=== PATIENT | male | born 2000 | race Caucasian/White ===

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

== ENCOUNTER → 2021-08-05 09:46 | Outpatient (BNVA) | payer OTHER, SELFPAY | PROVIDERS: PCP Internal Medicine; Visit Provider Nurse Practitioner Psychiatric/Mental Health | DX: F31.81 Bipolar II disorder (principal); Z03.89 Encounter for observation for other suspected diseases and conditions ruled out; Z79.899 Other long term (current) drug therapy; F50.81 Binge eating disorder; F90.2 Attention-deficit hyperactivity disorder, combined type; Z78.9 Other specified health status | CPT/HCPCS: 80053; 80061; 82306; 83036; 84443 ==

== ENCOUNTER → 2021-12-30 13:58 | Outpatient (BNVA) | payer OTHER, SELFPAY | PROVIDERS: PCP Internal Medicine; Visit Provider Nurse Practitioner Psychiatric/Mental Health | DX: F50.81 Binge eating disorder (principal); F90.2 Attention-deficit hyperactivity disorder, combined type; Z79.899 Other long term (current) drug therapy | CPT/HCPCS: 80053; 82306 ==

== ENCOUNTER 2023-02-12 17:06 | Emergency (ER) | payer OTHER, MEDICAID, SELFPAY ==
[2023-02-12 17:14] VITALS: BP 146/88; PULSE 129; RESP 18; TEMP 38.5; O2SAT 100; BMI 47.5
[2023-02-12 17:43] VITALS: BP 146/88; PULSE 129; RESP 18; O2SAT 100
--- NOTE | 2023-02-12 18:00 | ED.C_ITS ---
HPI - Psych General: Chief Complaint: Psychiatric Symptoms Stated Complaint: MHE,SI,off meds Time Seen by Provider: 02/12/23 17:41 History of Present Illness: Patient presents to the ER with family members at bedside. Patient states she does have a history of recent hallucinations and she has been off her medicine for a long long time. Family says she was recently found walking alongside the road and wandering through peoples yards and was seen at another facility and discharged. Patient would like to get back on her medications. Patient is not suicidal or homicidal at this time. Patient says the Abilify worked the best for her but does not know the dosage. Review of Systems General: Reports: 10 or more systems reviewed and unremarkable except in HPI and below PFSH ED PFSH: Medical History [id number] transgender person Psychiatric care Binge eating disorder Since age of 14 yr old Attention deficit hyperactivity disorder (ADHD), combined type, moderate diagnosed as a child Bipolar II disorder Depressive episodes Family History Grandfather Cancer Lung disease Grandmother Dementia Lung disease Father Diabetes Social History Smoking and tobacco/nicotine status: never used tobacco/nicotine Second hand smoke exposure: No Alcohol intake: former Substance/Drug Use: never Adopted: No Physical Exam Const: COMMON NORMALS: no acute distress, average body habitus, patient oriented x3, no limitations, healthy appearing, alert and well nourished HENMT: COMMON NORMALS: normocephalic, atraumatic, hearing grossly normal bilaterally, external ears normal, Normal external nose present, moist oral mucous membranes and oropharynx normal HEAD & SCALP: normocephalic and atraumatic NOSE: Normal external nose present EXTERNAL EAR: Yes external ears normal Neck/C-Spine: COMMON NORMALS: no JVD Chest: COMMONS NORMALS: normal inspection of the chest and normal palpation of entire chest wall Resp: COMMON NORMALS: normal respiratory effort, No retractions, No use of accessory muscles and clear to auscultation bilaterally AUSCULTATION: clear to auscultation bilaterally Cardio: COMMON NORMALS: no JVD, regular rate, regular rhythm, S1 normal heart sound present, S2 normal heart sound present, No gallops present (Cardio), No clicks present (Cardio), No murmurs present (Cardio) and No rub (Cardio) RATE: regular rate RHYTHM: regular rhythm HEART SOUNDS: S1 normal heart sound present and S2 normal heart sound present GI: COMMON NORMALS: Normal to inspection, nondistended, normoactive bowel sounds present, Soft to palpation, non-tender, No hepatosplenomegaly present and no masses PALPATION: Yes Soft to palpation and Yes No hepatosplenomegaly present Neuro: COMMON NORMALS: patient oriented x3 SENSORIUM/ORIENTATION: Yes alert Course Vital Signs: Vital signs: Vital Signs Temperature 101.3 F 02/12/23 17:14 Pulse Rate 129 02/12/23 17:43 Respiratory Rate 18 02/12/23 17:43 Blood Pressure 146/88 02/12/23 17:43 Pulse Oximetry 100 02/12/23 17:43 Oxygen Delivery Me thod Room Air 02/12/23 17:43 [facility] - Psych Medical Decision Making Patient has bipolar and has been off her medicine for some time. Patient is having recent hallucinations. Patient is not suicidal or homicidal. Patient was get back on her medication. She does not know the dose. We will restart her on Abilify 10 mg and refer her to psychiatry. Differential Diagnosis Likely bipolar disorder; Unlikely acute psychosis, chronic schizophrenia, suicidal ideation, depression, drug-induced psychotic disorder or acute anxiety Medical Records I reviewed the patient's medical records. Lab Data I reviewed the patient's lab results. No radiology studies performed this visit Discharge Plan Discharge Patient Disposition: Home Clinical Impression: Bipolar II disorder Condition: Stable Prescriptions: No Action spironolactone 25 mg tablet 50 mg PO DAILY estradiol 2 mg tablet 2 mg PO BID Rx Instructions: Take one tablet every morning and one tablet at bedtime hydroxyzine pamoate [Vistaril] 25 mg capsule 25 mg PO BID PRN (Reason: anxiety) Qty: 30 3RF Rx Instructions: May take one capsule twice per day as needed for anxiety Latuda 20 mg tablet 20 mg PO BEDTIME Qty: 30 3RF Rx Instructions: Take one tablet with 40 mg tablet at bedtime with 350 calorie snack, total dose of 60 mg Latuda 40 mg tablet 40 mg PO BEDTIME Qty: 30 3RF Rx Instructions: Take one tablet at bedtime with 350 calories snack progesterone micronized 100 mg capsule 200 mg PO BEDTIME Discharge Orders: Discharge ED (Routine); Ordered 02/12/23 Ordered By: Jm Her Referrals: Jamey Schofield MD [Primary Care Provider] - 1 week Patient Instructions: Bipolar Disorder Activity Restrictions/Additional Instructions: Please restart and take your medicine as prescribed. This will be Abilify 10 mg 1 pill daily. You have been referred to case management they will be giving you a call and setting up an appointment with a psychiatrist and/or counselor. If you have not heard from them within a couple business days please feel free to call back. If you have develop any suicidal or homicidal ideation please return to the ER for further evaluation and treatment. Coding Level of Care Code ED Hematology Oncology Consultant for Brennan Grijalva
[2023-02-12] MEDS: ARIPiprazole 10 mg Tablet PO (18:49)
[2023-02-12 18:50] VITALS: BP 135/89; PULSE 91; O2SAT 95
== END 2023-02-12 18:51 | disposition home or self-care (01) ==
PROVIDERS: Emergency Provider Emergency Medicine; PCP Internal Medicine
DX: F31.81 Bipolar II disorder (principal)
CPT/HCPCS: 99283

== ENCOUNTER 2023-02-14 10:01 | Emergency (ER) | payer OTHER, MEDICAID, SELFPAY ==
[2023-02-14] VITALS (8 sets, daily range): BP systolic 134–163; BP diastolic 89–110; PULSE 78–120; RESP 20; O2SAT 96–100
--- NOTE | 2023-02-14 10:30 | PC.PHAR ---
GUARDIAN STATES PT NOT TAKING ESTRADIOL 2 MG LAST FILLED 90DS. NO OTHER MEDS EXCEPT ABILIFY 10 MG 02/14/23
--- NOTE | 2023-02-14 10:39 | ED.C_ITS ---
Documented by User: Pretty Chance MD 02/15/23 06:13 HPI - Psych 2 General: Chief Complaint: Psychiatric Symptoms Stated Complaint: MHE Time Seen by Provider: 02/14/23 10:07 Source: patient and family Mode of arrival: ambulatory Limitations: no limitations History of Present Illness: 22-year-old male who identifies as a fem katharine who has a history of bipolar mother states that she did not take her meds for a year mother states that she was in [place] was at a hospital in was talking to people not there and left AMA police then picked her up with mother and went and got her and brought her down here she states that since she has been here she has been extremely paranoid states that she just caught her playing with a title examiner and then this morning was throwing pancakes in the trash and states that she has had hallucinations patient here does admit that she has been hearing things but is very avoidant with me and will not give me much history. Associated symptoms: Reports auditory hallucinations and delusions; Deny depression Review of Systems 2 Const: Denies: fever(s), chills, body aches or change in appetite Eyes: Denies: blurry vision or eye discomfort ENMT: Denies: throat pain or dental pain Card: Denies: chest pain Resp: Denies: dyspnea GI: Denies: abdominal pain, nausea, vomiting or diarrhea Musc: Denies: neck pain or back pain Skin/Breast: Denies: rash Neuro: Denies: headache(s) Psych: Reports: paranoia and auditory hallucinations; Denies: depression PFSH ED 2 PFSH: Medical History [id number] transgender person Psychiatric care Binge eating disorder Since age of 14 yr old Attention deficit hyperactivity disorder (ADHD), combined type, moderate diagnosed as a child Bipolar II disorder Depressive episodes Family History Grandfather Cancer Lung disease Grandmother Dementia Lung disease Father Diabetes Social History Smoking and tobacco/nicotine status: never used tobacco/nicotine Second hand smoke exposure: No Alcohol intake: former Substance/Drug Use: never Adopted: No Physical Exam 2 Const: COMMON NORMALS: no acute distress, patient oriented x3 and healthy appearing HENMT: COMMON NORMALS: normocephalic and atraumatic HEAD & SCALP: n ormocephalic and atraumatic Eye: COMMON NORMALS: Equal, round and reactive pupils present and EOMs intact bilaterally PUPIL: Yes Equal, round and reactive pupils present Neck/C-Spine: COMMON NORMALS: full ROM and supple Chest: COMMONS NORMALS: normal inspection of the chest and normal palpation of entire chest wall Resp: COMMON NORMALS: normal respiratory effort Cardio: COMMON NORMALS: regular rate RATE: regular rate Extremity: COMMON NORMALS: normal to inspection and full ROM Neuro: COMMON NORMALS: patient oriented x3, moves all extremities and no focal motor deficits Psych: COMMON NORMALS: mental status grossly normal and cooperative SPEECH: Yes minimal MOOD & AFFECT: Yes depressed mood THOUGHT CONTENT: Yes delusions Skin: COMMON NORMALS: no rashes or lesions noted and no wounds GENERAL SKIN EXAM: no rashes or lesions noted Course 2 Vital Signs: Vital signs: Vital Signs Pulse Rate 120 02/14/23 10:06 Respiratory Rate 20 02/14/23 10:06 Blood Pressure 163/110 02/14/23 10:06 Pulse Oximetry 98 02/14/23 15:12 Oxygen Delivery Me thod Room Air 02/14/23 10:57 MDM - Psych Medical Records I reviewed the patient's medical records. Lab Data I reviewed the patient's lab results. 02/14/23 10:32 02/14/23 10:32 Laboratory Results WBC 9.10 10^3/uL (3.29-11.43) 02/14/23 10:32 RBC 4.67 10^6/uL (3.85-5.65) 02/14/23 10:32 Hgb 12.90 g/dL (11.27-16.99) 02/14/23 10:32 Hct 40.8 % (37-53) 02/14/23 10:32 MCV 87.4 fl (82-101) 02/14/23 10:32 MCH 27.6 pg (27-33) 02/14/23 10:32 MCHC 31.6 g/dL (30-55) 02/14/23 10:32 RDW 12.9 % (12.1-15.1) 02/14/23 10:32 Plt Count 334 10^3/cmm (157-399) 02/14/23 10:32 MPV 9.2 fL (7.4-10.4) 02/14/23 10:32 Neut % (Auto) 75.2 % 02/14/23 10:32 Lymph % (Auto) 15.6 % 02/14/23 10:32 Gaines % (Auto) 8.0 % 02/14/23 10:32 Eos % (Auto) 0.8 % 02/14/23 10:32 Baso % (Auto) 0.3 % 02/14/23 10:32 Neut # (Auto) 6.84 10^3/uL (1.8-7.7) 02/14/23 10:32 Lymph # (Auto) 1.4 10^3/uL (0.8-4.8) 02/14/23 10:32 Gaines # (Auto) 0.7 10^3/uL (0.2-0.9) 02/14/23 10:32 Eos # (Auto) 0.1 10^3/uL (0.0-0.8) 02/14/23 10:32 Baso # (Auto) 0.0 10^3/uL (0.0-0.1) 02/14/23 10:32 Nucleated RBC % (auto) 0 % 02/14/23 10:32 Nucleated RBCs # 0.0 /100WBC 02/14/23 10:32 Sodium 138 mmol/L (136-145) 02/14/23 10:32 Potassium 3.2 mmol/L (3.5-5.1) L 02/14/23 10:32 Chloride 101 mmol/L (98-107) 02/14/23 10:32 Carbon Dioxide 23 mmol/L (22-29) 02/14/23 10:32 Anion Gap 17.2 (5-19) 02/14/23 10:32 BUN 5 mg/dL (6-20) L 02/14/23 10:32 Creatinine 0.8 mg/dL (0.7-1.2) 02/14/23 10:32 GFR Calculation 122.0 mL/min (90-130) 02/14/23 10:32 Glucose 116 mg/dL (65-115) H 02/14/23 10:32 Calculated Osmolality 284 mOsm/kg (285-295) L 02/14/23 10:32 Calcium 9.8 mg/dL (8.5-10.5) 02/14/23 10:32 Total Bilirubin 0.4 mg/dL (0.15-1.2) 02/14/23 10:32 AST 33 U/L (0-40) 02/14/23 10:32 ALT 50 U/L (0-41) H 02/14/23 10:32 Alkaline Phosphatase 73 U/L (40-130) 02/14/23 10:32 Total Protein 8.2 g/dL (6.6-8.7) 02/14/23 10:32 Albumin 4.3 g/dL (3.5-5.2) 02/14/23 10:32 Globulin 3.9 g/dL (1.3-4.6) 02/14/23 10:32 Salicylates < 0.3 mg/dL (3-10) L 02/14/23 10:32 Urine Opiates Screen Negative ng/mL (Negative) 02/14/23 12:00 Acetaminophen < 5.0 ug/mL (10-30) L 02/14/23 10:32 Ur Barbiturates Screen Negative ng/mL (Negative) 02/14/23 12:00 Ur Phencyclidine Scrn Negative ng/mL (Negative) 02/14/23 12:00 Ur Amphetamines Screen Negative ng/mL (Negative) 02/14/23 12:00 U Benzodiazepines Scrn Positive ng/mL (Negative) H 02/14/23 12:00 Urine Cocaine Screen Negative ng/mL (Negative) 02/14/23 12:00 U Marijuana (THC) Screen Positive ng/mL (Negative) H 02/14/23 12:00 Ethyl Alcohol < 10 mg/dL (0-10) 02/14/23 10:32 SARS-CoV-2 Ag (Rapid) negative (Negative) 02/14/23 11:58 All radiology interpretation(s) finalized by discharge EKG Data EKG 1: I personally reviewed and interpreted this EKG as follows: EKG interpretation date: 02/14/23 EKG interpretation time: 11:55 Interpretation: nsr hr [address] or t wave abnormalities qrs 91 qtc 409 Discharge Plan Discharge Patient Disposition: Xfer Psychiatric Hosp Clinical Impression: Acute psychosis Condition: Stable Referrals: Jamey Schofield MD [Primary Care Provider] - Coding Level of Care Code ED Locomotive Boilermaker for Chg Fwd Documented by User: Ej Negro DO 02/15/23 01:44 HPI - Psych 2 General: Chief Complaint: Psychiatric Symptoms Stated Complaint: MHE Time Seen by Provider: 02/14/23 10:07 PFSH ED 2 PFSH: Medical History Bdpi-pa-tejmaa transgender person Psychiatric care Binge eating disorder Since age of 14 yr old Attention deficit hyperactivity disorder (ADHD), combined type, moderate diagnosed as a child Bipolar II disorder Depressive episodes Family History Grandfather Cancer Lung disease Grandmother Dementia Lung disease Father Diabetes Social History Smoking and tobacco/nicotine status: never used tobacco/nicotine Second hand smoke exposure: No Alcohol intake: former Substance/Drug Use: never Adopted: No Course 2 Vital Signs: Vital signs: Vital Signs Pulse Rate 120 02/14/23 10:06 Respiratory Rate 20 02/14/23 10:06 Blood Pressure 163/110 02/14/23 10:06 Pulse Oximetry 98 02/14/23 15:12 Oxygen Delivery Me thod Room Air 02/14/23 10:57 MDM - Psych Medical Decision Making This patient was received in checkout at shift change in the previous physician. This is an anatomically male patient who goes by she. The patient was placed under 96-hour hold by the previous physician. Medically she is stable. She did become agitated after having stressed out in paper scrubs, and relinquish her phone. For this, she was given oral Zyprexa and Ativan. This seemed to work well. She has been resting comfortably. She was accepted by [facility] in [place], as we do not have any beds available at this facility. She will go this morning and transport by EMS. She remains medically stable at this time. Lab Data 02/14/23 10:32 02/14/23 10:32 Laboratory Results WBC 9.10 10^3/uL (3.29-11.43) 02/14/23 10:32 RBC 4.67 10^6/uL (3.85-5.65) 02/14/23 10:32 Hgb 12.90 g/dL (11.27-16.99) 02/14/23 10:32 Hct 40.8 % (37-53) 02/14/23 10:32 MCV 87.4 fl (82-101) 02/14/23 10:32 MCH 27.6 pg (27-33) 02/14/23 10:32 MCHC 31.6 g/dL (30-55) 02/14/23 10:32 RDW 12.9 % (12.1-15.1) 02/14/23 10:32 Plt Count 334 10^3/cmm (157-399) 02/14/23 10:32 MPV 9.2 fL (7.4-10.4) 02/14/23 10:32 Neut % (Auto) 75.2 % 02/14/23 10:32 Lymph % (Auto) 15.6 % 02/14/23 10:32 Gaines % (Auto) 8.0 % 02/14/23 10:32 Eos % (Auto) 0.8 % 02/14/23 10:32 Baso % (Auto) 0.3 % 02/14/23 10:32 Neut # (Auto) 6.84 10^3/uL (1.8-7.7) 02/14/23 10:32 Lymph # (Auto) 1.4 10^3/uL (0.8-4.8) 02/14/23 10:32 Gaines # (Auto) 0.7 10^3/uL (0.2-0.9) 02/14/23 10:32 Eos # (Auto) 0.1 10^3/uL (0.0-0.8) 02/14/23 10:32 Baso # (Auto) 0.0 10^3/uL (0.0-0.1) 02/14/23 10:32 Nucleated RBC % (auto) 0 % 02/14/23 10:32 Nucleated RBCs # 0.0 /100WBC 02/14/23 10:32 Sodium 138 mmol/L (136-145) 02/14/23 10:32 Potassium 3.2 mmol/L (3.5-5.1) L 02/14/23 10:32 Chloride 101 mmol/L (98-107) 02/14/23 10:32 Carbon Dioxide 23 mmol/L (22-29) 02/14/23 10:32 Anion Gap 17.2 (5-19) 02/14/23 10:32 BUN 5 mg/dL (6-20) L 02/14/23 10:32 Creatinine 0.8 mg/dL (0.7-1.2) 02/14/23 10:32 GFR Calculation 122.0 mL/min (90-130) 02/14/23 10:32 Glucose 116 mg/dL (65-115) H 02/14/23 10:32 Calculated Osmolality 284 mOsm/kg (285-295) L 02/14/23 10:32 Calcium 9.8 mg/dL (8.5-10.5) 02/14/23 10:32 Total Bilirubin 0.4 mg/dL (0.15-1.2) 02/14/23 10:32 AST 33 U/L (0-40) 02/14/23 10:32 ALT 50 U/L (0-41) H 02/14/23 10:32 Alkaline Phosphatase 73 U/L (40-130) 02/14/23 10:32 Total Protein 8.2 g/dL (6.6-8.7) 02/14/23 10:32 Albumin 4.3 g/dL (3.5-5.2) 02/14/23 10:32 Globulin 3.9 g/dL (1.3-4.6) 02/14/23 10:32 Salicylates < 0.3 mg/dL (3-10) L 02/14/23 10:32 Urine Opiates Screen Negative ng/mL (Negative) 02/14/23 12:00 Acetaminophen < 5.0 ug/mL (10-30) L 02/14/23 10:32 Ur Barbiturates Screen Negative ng/mL (Negative) 02/14/23 12:00 Ur Phencyclidine Scrn Negative ng/mL (Negative) 02/14/23 12:00 Ur Amphetamines Screen Negative ng/mL (Negative) 02/14/23 12:00 U Benzodiazepines Scrn Positive ng/mL (Negative) H 02/14/23 12:00 Urine Cocaine Screen Negative ng/mL (Negative) 02/14/23 12:00 U Marijuana (THC) Screen Positive ng/mL (Negative) H 02/14/23 12:00 Ethyl Alcohol < 10 mg/dL (0-10) 02/14/23 10:32 SARS-CoV-2 Ag (Rapid) negative (Negative) 02/14/23 11:58 Discharge Plan Discharge Patient Disposition: Xfer Psychiatric Hosp Clinical Impression: Acute psychosis Condition: Stable Referrals: Jamey Schofield MD [Primary Care Provider] - Coding Level of Care Code ED Locomotive Boilermaker for Brennan Grijalva
[2023-02-14] MEDS: LORazepam 2 mg Tablet PO ×2 (10:41→20:03)
--- NOTE | 2023-02-14 10:50 | PC.NURSE ---
96 hour hold rights read and reviewed with patient. Patient verbalized understandings. Copy of rights given to patient.
[2023-02-14 10:51] LABS: Basophils % 0.3 %; Eosinophils # 0.1 10^3/uL (0.0-0.8); Eosinophils % 0.8 %; Hematocrit 40.8 % (37-53); Lymphocytes # 1.4 10^3/uL (0.8-4.8); Lymphocytes % 15.6 %; Mean Corpuscular HGB Conc 31.6 g/dL (30-55); Mean Corpuscular Hemoglobin 27.6 pg (27-33); Mean Corpuscular Volume 87.4 fl (82-101); Mean Platelet Volume 9.2 fL (7.4-10.4); Monocytes # 0.7 10^3/uL (0.2-0.9); Neutrophils # 6.84 10^3/uL (1.8-7.7); Neutrophils % 75.2 %; Nucleated Red Blood Cells % 0 %; Platelet Count 334 10^3/cmm (157-399); Red Blood Count 4.67 10^6/uL (3.85-5.65); Red Cell Distribution Width 12.9 % (12.1-15.1)
--- NOTE | 2023-02-14 10:55 | ECG_ITS ---
[facility] Test Date: 2023-02-14 Pat Name: Palak Lion Department: Room: Gender: Male Cartographic Engineer: : 2000 Requested By: Pretty Chance Order Number: [id number] Vannessa MD: Laron Starkey M.D. Measurements Intervals [place] Rate: 88 P: 30 LA: 153 QRS: 50 QRSD: 91 T: 24 QT: 363 QTc: 441 Interpretive Statements SINUS RHYTHM No previous ECG available for comparison Electronically Signed On 02-14-2023 18:44:14 DATA MANAGEMENT MANAGER by Laron Starkey M.D. [id number]
[2023-02-14 11:20] LABS: Alanine Aminotransferase 50 U/L (0-41); Albumin Level 4.3 g/dL (3.5-5.2); Alkaline Phosphatase 73 U/L (40-130); Anion Gap 17.2 (5-19); Aspartate Amino Transferase 33 U/L (0-40); Blood Urea Nitrogen 5 mg/dL (6-20); Calcium 9.8 mg/dL (8.5-10.5); Carbon Dioxide 23 mmol/L (22-29); Chloride 101 mmol/L (98-107); Globulin 3.9 g/dL (1.3-4.6); Glucose 116 mg/dL (65-115); Osmolality Calculated 284 mOsm/kg (285-295); Potassium 3.2 mmol/L (3.5-5.1); Sodium 138 mmol/L (136-145); Total Bilirubin 0.4 mg/dL (0.15-1.2); Total Protein 8.2 g/dL (6.6-8.7)
[2023-02-14 11:50] LABS: Acetaminophen < 5.0 ug/mL (10-30); Alcohol Level < 10 mg/dL (0-10); Salicylate < 0.3 mg/dL (3-10)
[2023-02-14 12:18] LABS: Amphetamines Screen Urine Negative (Negative); Barbiturates Screen Urine Negative (Negative); Benzodiazepines Screen Urine Positive (Negative); Cocaine Screen Urine Negative (Negative); Opiate Screen Urine Negative (Negative); PCP Screen Urine Negative (Negative); THC Screen Urine Positive (Negative)
[2023-02-14 12:47] LABS: SARS Covid-2 Antigen negative (Negative)
[2023-02-14] MEDS: OLANZapine 10 mg ODT 20 MG PO (20:03)
--- NOTE | 2023-02-15 12:45 | PC.NURSE ---
this nurse gave [facility] EMS report on pt at 1245 pt left facility at approx 1255.
== END 2023-02-15 12:55 ==
PROVIDERS: Emergency Provider Emergency Medicine; PCP Internal Medicine
DX: F23 Brief psychotic disorder (principal); F64.0 Transsexualism; Z11.52 Encounter for screening for COVID-19
CPT/HCPCS: 36415; 80053; 80306; 80307; 85025; 87426; 93005; 99284

== ENCOUNTER 2024-11-11 18:42 | Emergency (ER) | payer OTHER, SELFPAY ==
--- OUTSIDE RECORDS SUMMARY | 2024-11-11 18:46 | XMS_ITS | Patient Health Record ---
Author Organization [facility] Address [address] [place] [address] Care Team Providers Care District Representative Name Role Phone Jose, Suzi Primary Care Provider [phone] Tony Schofield Unavailable [phone] Allergies Allergen (clinical drug ingredient) Drug/Non Drug Allergy documented on EMR Reaction Allergy Type Onset Date Status amoxicillin Amoxicillin Unknown Drug Allergy Act dean Reason For Referral No Information Medications Medication SIG (Take, Route, Frequency, Duration) Notes Start Date End Date Status Propranolol HCl 20 MG Tablet 1 tablet Orally Once a day Active ARIPiprazole 5 MG Tablet 1 tablet Orally Once a day Not-Taking Topiramate 50 MG Tablet 1 tablet Orally Once a day Active Invega Sustenna 156 MG/ML Suspension Prefilled Syringe 1 mL Intramuscular Acti ve risperiDONE 1 MG Tablet 1 tablet Orally Once a day Not-Taking ARIPiprazole 20 MG Tablet 1 tablet Orally Once a day Not-Taking Social History Tobacco Use: Social History Observation Description Date Details (start date - stop date) Never Smoker NA - NA Social History Depression Screening Social Info Question Answer Notes depression screening findings Findings Negative (0 -4) 08/09/24 PHQ-9 Little interest or p wiliam in doing things Not at all Feeling down, depressed, or hopeless Not at all Trouble falling or staying asleep, or sleeping t oo much Not at all Feeling tired or having little energy Not at all Poor appetite or overeating Not at all Feeling bad about yourself, or that you are a failure, or have let yourself or your family down Not at all Trouble concentrating on thi ngs, such as reading the newspaper or watching television Not at all Moving or speaking so slowly that other people could have noticed. Or the opposite ? being so fidgety or restless that you have been moving around a lot more than usual Not at all Thoughts that you would be b jimmie off , or of hurting yourself in some way Not at all Total Score 0 Drugs/Alcohol: Social Info Question Answer Notes Alcohol Screen (Audit-C) Did you have a drink containing alcohol in the past year? Yes How often did you have a drink containing alcohol in the past year? 2 to 4 times a month (2 points) Points 2 Interpretation Negative Drugs Have you used drugs other than those for medical reasons in the past 12 months? Yes Marijuana? Yes Tobacco Use: Social Info Question Answer Notes Tobacco Control (Standard) Tobacco use: Nonsmoker Section Notes: CIME Dep/Tob 08/09/24 Vital Signs Heart Rate 85 /min 08/09/2024 Temperature 98 degrees Fahrenheit 08/09/2024 Oximetry 98 % 08/09/2024 Height-cm 182.88 cm 08/09/2024 Blood pressure diastolic 70 mm Hg 08/09/2024 Weight-kg 175.09 kg 08/09/2024 Height 72 in 08/09/2024 Blood pressure systolic 116 mm Hg 08/09/2024 Weight 386 lbs 08/09/2024 BMI 52.35 kg/m2 08/09/2024 Encounters Encounter Location Date Provider Diagnosis [facility] [address] [place] [id number] 08/09/2024 Tony Schofield Abscess of nose J34.0 and Depression screen Z13.31 Assessments Encounter Date Diagnosis (ICD Code) Assessment Notes Treatment Notes Treatment Clinical Notes Section Notes 08/09/2024 Abscess of nose (ICD-10 - J34.0) All patient's questions are encouraged and addressed to their apparent satisfaction. They are agreeable with the proposed plan of care and deny further needs or concerns. Patient is advised to take medications as prescribed. Patient agrees to contact the clinic with any new, worsening or increase of symptons. I am happy to see patient prior to next office visit as needed for acute concerns. 08/09/2024 Depression screen (ICD-10 - Z13.31) Plan Of Treatment No Information Insurance Providers Payer Name Payer Address Payer Phone Subscriber Number Group Number Insured Name Patient Relationship to Insured Coverage Start Date Coverage End Date Aubrey RANDALL [id number] [place] [phone] [id number] Palak Lion Self - patient is the insured Medical (General) History Medical History History ICD Code bipolar disorder schizoaffective disorder
[2024-11-11 18:56] VITALS: BP 120/65; PULSE 120; RESP 16; TEMP 36.7; O2SAT 98; BMI 50.1
[2024-11-11 19:03] VITALS: BP 120/65; PULSE 120; RESP 16; TEMP 36.7; O2SAT 98
--- NOTE | 2024-11-11 19:32 | ED_ITS ---
HPI - Altered Mental Status General: Chief Complaint: Altered Mental Status Stated Complaint: THC od Time Seen by Provider: 11/11/24 19:03 History of Present Illness: Patient is a 24-year-old identifies as she/her/hers presents to the emergency room due to THC overdose. Patient had 5 THC Gummies approximately 3 hours ago. She is afraid she is having a stroke or heart attack. Heart rate in triage inconsistent is 120. She has a dry mouth, otherwise does not complain of any symptoms or side effects of hunger. She admits to feeling restless and paranoid. She denies any suicide ideation or homicide ideation. Associated symptoms: Reports auditory hallucinations; Deny depression Related Data Previous Rx's ?Medication ?Instructions ?Recorded aripiprazole 10 mg tablet (Abilify) 10 mg PO DAILY #30 tabs 02/12/23 Allergies Allergy/AdvReac Type Severity Reaction Status Date / Time Penicillins Allergy Unknown ALGY-Rash Verified 02/12/23 17:19 Review of Systems Const: Denies: fever(s), chills, body aches or change in appetite Eyes: Denies: blurry vision or eye discomfort ENMT: Denies: throat pain or dental pain Card: Denies: chest pain Resp: Denies: dyspnea GI: Denies: abdominal pain, nausea, vomiting or diarrhea Musc: Denies: neck pain or back pain Skin/Breast: Denies: rash Neuro: Denies: headache(s) Psych: Reports: paranoia and auditory hallucinations; Denies: depression [facility] ED PFSH: Medical History (Updated 11/11/24 @ 19:40 by BYRON Ghosh) [id number] transgender person Binge eating disorder Since age of 14 yr old Attention deficit hyperactivity disorder (ADHD), combined type, moderate diagnosed as a child Bipolar II disorder Depressive episodes Family History Grandfather Cancer Lung disease Grandmother Dementia Lung disease Father Diabetes Social History Smoking and tobacco/nicotine status: never used tobacco/nicotine Second hand smoke exposure: No Alcohol intake: former Substance/Drug Use: never Adopted: No Physical Exam Const: COMMON NORMALS: no acute distress, average body habitus, patient oriented x3, no limitations, healthy appearing, alert and well nourished HENMT: COMMON NORMALS: normocephalic, atraumatic and hearing grossly normal bilaterally HEAD & SCALP: normocephalic and atraumatic Eye: COMMON NORMALS: Equal, round and reactive pupils present, EOMs intact bilaterally, conjunctivae normal, no scleral icterus and no papilledema CONJUNCTIVA: Yes conjunctivae normal PUPIL: Yes Equal, round and reactive pupils present DIRECT OPHTHALMOSCOPY: Yes no papilledema Neck/C-Spine: COMMON NORMALS: full ROM, no lymphadenopathy, supple and no meningeal signs Lymph: LYMPHATIC: no lymphadenopathy noted Chest: COMMONS NORMALS: normal inspection of the chest and normal palpation of entire chest wall Resp: COMMON NORMALS: normal respiratory effort, No retractions and clear to auscultation bilaterally AUSCULTATION: clear to auscultation bilaterally Cardio: COMMON NORMALS: regular rhythm RATE: tachycardic RHYTHM: regular rhythm GI: COMMON NORMALS: Normal to inspection, nondistended, normoactive bowel sounds present, non-tender and No hepatosplenomegaly present PALPATION: Yes No hepatosplenomegaly present : COMMON NORMALS: Yes no CVA tenderness BLADDER/KIDNEY EXAM: Yes no CVA tenderness Back/Pelvis: COMMON NORMALS: no CVA tenderness Extremity: COMMON NORMALS: normal to inspection, full ROM and capillary refill normal Neuro: COMMON NORMALS: patient oriented x3 SENSORIUM/ORIENTATION: Yes alert MENINGEAL SIGNS: Yes no meningeal signs Psych: COMMON NORMALS: mental status grossly normal, Normal thought process present and cooperative APPEARANCE: Yes grossly normal THOUGHT PROCESS: Normal thought process present Skin: COMMON NORMALS: no rashes or lesions noted, no wounds and turgor normal GENERAL SKIN EXAM: no rashes or lesions noted and turgor normal Course Vital Signs: Vital signs: Vital Signs Temperature 98.1 F 11/11/24 19:03 Pulse Rate 120 H 11/11/24 19:03 Respiratory Rate 16 11/11/24 19:03 Blood Pressure 120/65 11/11/24 19:03 Pulse Oximetry 98 11/11/24 19:03 Oxygen Delivery Me thod Room Air 11/11/24 19:03 MDM - Altered Mental Status Medical Decision Making Patient is a 24-year-old identifies as female that presented to the emergency room after 5 Gummies of THC. She has some conjunctival injections associated with side effects of THC, and slower to respond, however at all times appropr iate just not as quick as you typically would expect. I have discussed with patient that she needs to follow recommended directions if she tries to take this in the future. Patient states understanding. I do not believe she needs any additional testing at this time. She had some slight tachycardia, which goes with THC misuse, for which I have asked her to have 1 L of noncaffeinated fluid prior to laying down and resting this off. All of her questions answered to her satisfaction. No radiology studies performed this visit Discharge Plan Discharge Patient Disposition: Home Clinical Impression: Metabolic encephalopathy, Altered mental status, Intoxication by drug Condition: Stable Prescriptions: No Action aripiprazole [Abilify] 10 mg tablet 10 mg PO DAILY Qty: 30 0RF Discharge Orders: Discharge ED (Routine); Ordered 11/11/24 Ordered By: Suzan Lemon Referrals: Jamey Schofield MD [Primary Care Provider, Internal Medicine] Discharge Diet: Usual diet Discharge Activity: Resume usual activity Patient Instructions: Medicinal Use of Cannabis (ED), Altered Mental Status (ED), Patient Portal & Connie Instructions Activity Restrictions/Additional Instructions: - Drink 1 L of water/or noncaffeinated beverage prior to resting. - Thank you for bringing a ride with you. When you reach home, start resting for the night after you have 1 L of water/noncaffeinated beverage. - Remember to follow the directions on recommended dosage of a natural/legal item such as THC. Even though this is a substance grown by a plant, as you know, you can overdose on this. - No evidence of your medical screening suggested any concern from a medical standpoint other than your heart rate is too fast, from the THC. 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
== END 2024-11-11 20:22 | disposition home or self-care (01) ==
PROVIDERS: Emergency Provider Physician Assistant; PCP Internal Medicine
DX: G93.41 Metabolic encephalopathy (principal); R41.82 Altered mental status, unspecified; F12.929 Cannabis use, unspecified with intoxication, unspecified
CPT/HCPCS: 99282